=== PATIENT | female | born 1965 | race Caucasian/White ===

== ENCOUNTER 2022-03-11 14:21 | Emergency (ER) | payer BC ==
[~2022-03-11] VITALS: Ht 149.9 cm; Wt 70.3 kg
[2022-03-11 14:21] VITALS: BP_SYST 155
--- NOTE | 2022-03-11 14:25 | NUR ---
Patient triaged and placed in waiting room. VSS and patient appears in no acute distress at this time. Accompanied by SELF, awaiting available bed, and MD notified of need for MSE.
--- NOTE | 2022-03-11 14:27 | NUR ---
PT STATES THAT 6 DAYS AGO SHE ACCIDENTALLY SLEPT WITH HER DENTURES IN AND SINCE HAS HAD LEFT SIDED FACIAL SWELLING. PT STATES SHE HAD A FALL 1 YEAR AGO WITH INJURY TO LEFT SIDE OF FACE.
[2022-03-11 17:06] LABS: BASOPHILS % (AUTO) 0.4 % (0.0-2.0); EOSINOPHILS % (AUTO) 0.4 % (0.0-4.0); HEMATOCRIT 30.5 % (36-48); HEMOGLOBIN 10.5 g/dL (12.0-16.0); LYMPHOCYTES # (AUTO) 0.8 K/uL (1.0-5.5); LYMPHOCYTES % (AUTO) 9.6 % (20.5-51.5); MEAN CORPUSCULAR HEMOGLOBIN 26 pg (27-31); MEAN CORPUSCULAR HGB CONC 34 % (32-36); MEAN CORPUSCULAR VOLUME 76 fL (79.0-98.0); MONOCYTES # (AUTO) 0.7 K/uL (0.0-1.0); MONOCYTES % (AUTO) 8.3 % (1.7-9.3); NEUTROPHILS # (AUTO) 6.9 K/uL (1.8-7.7); NEUTROPHILS % (AUTO) 81.3 % (40.0-70.0); PLATELET COUNT (AUTO) 349 K/uL (130-430); RED BLOOD CELL COUNT(AUTO) 4.03 MIL/uL (4.2-6.2); RED CELL DISTRIBUTION WIDTH 14.9 % (9.0-15.0); WHITE BLOOD COUNT (AUTO) 8.5 K/uL (4.8-10.8)
[2022-03-11 17:30] LABS: PROTHROMBIN TIME 10.1 SECS (9.5-12.5)
[2022-03-11 17:36] LABS: ALBUMIN 1.7 g/dL (3.4-4.8); C-REACTIVE PROTEIN QUANT 13.9 mg/dL (0-0.5); CALCIUM 8.9 mg/dL (8.4-11.0); CREATININE 2.42 mg/dL (0.55-1.30); TOTAL BILIRUBIN 0.5 mg/dL (0.0-1.0)
[2022-03-11 18:04] LABS: ERYTHROCYTE SEDIMENTATION RATE 106 MM/HR (0-20)
--- NOTE | 2022-03-11 18:09 | NUR ---
BROUGHT BACK TO BED #5 AND REPORT GIVEN TO SANDHYA
[2022-03-11] MEDS ORDERED: KETOROLAC TROMETHAMINE 30 MG VIAL IM ONE (18:15)
[2022-03-11] MEDS ORDERED: DIPHENHYDRAMINE HCL 50 MG CAPSULE PO ONE (18:15)
[2022-03-11] MEDS ORDERED: AMOXICILLIN/POTASSIUM CLAV 875 MG TABLET PO ONE (18:15)
--- NOTE | 2022-03-11 18:25 | NUR ---
Pt is Patient is a 57-year-old female with a past medical history of diabetes and hypertension presenting to the ED with a 6-day history of left-sided facial and gum swelling, redness and pain. She states that approximately 1 week ago she slept on top of her dentures and woke up the following day with left-sided facial swelling. She reports that swelling and redness have not improved nor worsened over the course of the past week. Patient also endorses mild left-ear pain but otherwise denies throat swelling, difficulty swallowing, fevers, nausea, vomiting, shortness of breath, chest pain, or other symptoms at this time. To note, patient reports left facial bone fracture approximately 1 year ago and has been experiencing chronic pain since. Patient states that she was taking Naprosyn for pain but states that medication was causing increasing facial swelling so she reports switching to Excedrin for the past 2 days.
[2022-03-11] MEDS ORDERED: AUG875 PO (18:28)
[2022-03-11] MEDS ORDERED: OXYC-128 PO (18:28)
[2022-03-11] MEDS ORDERED: FLUT16SP16 NS (18:28)
[2022-03-11] MEDS ORDERED: [UNRECOGNIZED DRUG - CODE] PO (18:28)
[2022-03-11] MEDS ORDERED: OXYCODONE/ACETAMINOPHEN 5-325 TABLET PO ONE (18:45)
--- NOTE | 2022-03-11 19:00 | NUR ---
Patient given written and verbal discharge instructions and verbalizes understanding. ER MD discussed with patient the results and treatment provided. Patient in stable condition. ID arm band removed. Prescription given and discussed. Patient educated on pain management and to follow up with PMD. Opportunity for questions provided and answered. Medication side effect fact sheet provided.
[2022-03-11 22:24] VITALS: BP_SYST 155
== END 2022-03-11 19:00 | disposition home or self-care (01) ==
LOC: SED 14:21
DX: J01.90 Acute sinusitis, unspecified (principal); R22.0 Localized swelling, mass and lump, head; M26.622 Arthralgia of left temporomandibular joint; K08.89 Other specified disorders of teeth and supporting structures; N17.9 Acute kidney failure, unspecified; D64.9 Anemia, unspecified; E11.9 Type 2 diabetes mellitus without complications; I10 Essential (primary) hypertension; Z79.899 Other long term (current) drug therapy
CPT/HCPCS: 99284; 70450; 80053; 85025; 85610; 85651; 85730; 86140; 87040; 36415; 70486; 76376; 83605; Q0163; J1885

== ENCOUNTER 2022-03-14 07:16 | Inpatient (IN) | payer BC ==
[~2022-03-14] VITALS: Ht 149.9 cm; Wt 74.8 kg
[~2022-03-14 07:16] MED LIST: AUG875 PO; FLUT16SP16 NS; OXYC-128 PO; [UNRECOGNIZED DRUG - CODE] PO
[2022-03-14 07:49] VITALS: BP_SYST 235
[2022-03-14] MEDS ORDERED: LABETALOL HCL 20 MG/4 ML CARTRIDGE IVP ONE (08:00)
[2022-03-14] MEDS ORDERED: NACL 0.9% 1,000 ML IV ONE (08:00)
[2022-03-14] MEDS ORDERED: AMPICILLIN SODIUM/SULBACTAM NA 3 GM in NS 100 ML IV ONE (08:15)
[2022-03-14] MEDS ORDERED: AMPICILLIN SODIUM/SULBACTAM NA 3 GM VIAL ONE (08:26)
[2022-03-14] MEDS ORDERED: POLYMYXIN B/TRIMETHOPRIM EYE DROPS 10 mL OP ONE (08:45)
[2022-03-14 09:03] LABS: BASOPHILS % (AUTO) 0.3 % (0.0-2.0); EOSINOPHILS % (AUTO) 0.2 % (0.0-4.0); HEMATOCRIT 30.7 % (36-48); HEMOGLOBIN 10.5 g/dL (12.0-16.0); LYMPHOCYTES # (AUTO) 0.8 K/uL (1.0-5.5); LYMPHOCYTES % (AUTO) 8.8 % (20.5-51.5); MEAN CORPUSCULAR HEMOGLOBIN 26 pg (27-31); MEAN CORPUSCULAR HGB CONC 34 % (32-36); MEAN CORPUSCULAR VOLUME 76 fL (79.0-98.0); MONOCYTES # (AUTO) 0.6 K/uL (0.0-1.0); MONOCYTES % (AUTO) 6.5 % (1.7-9.3); NEUTROPHILS # (AUTO) 7.7 K/uL (1.8-7.7); NEUTROPHILS % (AUTO) 84.2 % (40.0-70.0); PLATELET COUNT (AUTO) 275 K/uL (130-430); RED BLOOD CELL COUNT(AUTO) 4.02 MIL/uL (4.2-6.2); RED CELL DISTRIBUTION WIDTH 14.2 % (9.0-15.0); WHITE BLOOD COUNT (AUTO) 9.1 K/uL (4.8-10.8)
[2022-03-14 09:09] LABS: CALCIUM 8.3 mg/dL (8.4-11.0); CREATININE 2.32 mg/dL (0.55-1.30)
[2022-03-14 09:13] LABS: ALBUMIN 1.6 g/dL (3.4-4.8); C-REACTIVE PROTEIN QUANT 11.2 mg/dL (0-0.5); TOTAL BILIRUBIN 0.7 mg/dL (0.0-1.0)
[2022-03-14] MEDS ORDERED: OXYMETAZOLINE HCL 0.05% NASAL SPRAY NS ONE (09:45)
[2022-03-14] MEDS ORDERED: INSULIN REGULAR, HUMAN 100 UNITS/ML, 3 ML VIAL SUBCUT ONE (09:45)
[2022-03-14 09:55] LABS: ERYTHROCYTE SEDIMENTATION RATE 113 MM/HR (0-20)
[2022-03-14] MEDS ORDERED: INSULIN REGULAR, HUMAN 10 UNITS/0.1 ML, 3 ML VIAL ONE (10:00)
[2022-03-14] MEDS ORDERED: hydrALAZINE HCL 20 MG/ML VIAL IVP ONE (13:00)
[2022-03-14] MEDS ORDERED: METOPROLOL SUCCINATE 50 MG TAB.SR.24H (TOPROL XL) PO ONE (13:30)
[2022-03-14] MEDS ORDERED: NAPROXEN 250 MG TABLET PO ONE (13:45)
[2022-03-14] MEDS: ESMOLOL HCL/SOD CL 250 ML IV PRN ×3 (13:54→19:08)
[2022-03-14] MEDS ORDERED: hydrALAZINE HCL 25 MG TABLET PO SCH ×2 (14:00→20:00)
[2022-03-14 14:43] LABS: FREE T4 (FREE THYROXINE) 0.5 ng/dL (0.6-1.6); THYROID STIMULATING HORMONE 0.93 uIu/mL (0.34-4.82)
[2022-03-14 14:43] LABS: BILIRUBIN,URINE NEGATIVE (NEGATIVE); BLOOD, URINE 1+ (NEGATIVE); CLARITY/URINE CLEAR (CLEAR); COLOR,URINE YELLOW (YELLOW); GLUCOSE,URINE 3+ (NEGATIVE); KETONES,URINE NEGATIVE (NEGATIVE); LEUKOCYTE ESTERASE ,URINE NEGATIVE (NEGATIVE); NITRITE, URINE NEGATIVE (NEGATIVE); PH,URINE 6.5 (5.0-8.0); PROTEIN URINE 3+ (NEGATIVE); UROBILINOGEN,URINE 0.2 (0.2-1.0)
[2022-03-14] MEDS ORDERED: LORazepam 2 MG/ML VIAL IVP PRN (14:45)
[2022-03-14] MEDS ORDERED: ONDANSETRON HCL 4 MG/2 ML VIAL IVP PRN (14:45)
[2022-03-14] MEDS ORDERED: ACETAMINOPHEN 325 MG TABLET PO PRN ×2 (14:45→15:15)
[2022-03-14] MEDS ORDERED: INSULIN REGULAR, HUMAN 100 UNITS/ML, 3 ML VIAL (humuLIN R) SUBCUT PRN (14:45)
[2022-03-14] MEDS ORDERED: NALOXONE HCL 0.4 MG/ML AMP (NARCAN) IVP PRN (14:45)
[2022-03-14] MEDS ORDERED: OXYCODONE/ACETAMINOPHEN 5-325 TABLET PO PRN (14:45)
[2022-03-14] MEDS ORDERED: HYDROcodone/ACETAMIN 5-325 MG TAB (NORCO/ VICODIN) PO PRN (14:45)
[2022-03-14 14:59] LABS: BACTERIA,URINE FEW /HPF (None Seen); WBC,URINE 0-3 /HPF (0-3)
[2022-03-14] MEDS ORDERED: DIPHENHYDRAMINE HCL 25 MG CAPSULE PO PRN (16:00)
[2022-03-14] MEDS ORDERED: BENA10TA73 PO (18:15)
[2022-03-14] MEDS ORDERED: QUET400T PO (18:15)
[2022-03-14 19:54] VITALS: BP_SYST 154
[2022-03-14] MEDS ORDERED: AMPICILLIN SODIUM/SULBACTAM NA 3 GM in NS 100 ML IV SCH (21:00)
[2022-03-14] MEDS ORDERED: NAPROXEN 250 MG TABLET PO SCH (21:00)
[2022-03-14] MEDS ORDERED: NORMAL SALINE 5 ML DISP.SYRIN IVF SCH ×2 (22:00)
[2022-03-15] MEDS ORDERED: FLUTICASONE PROPIONATE 50 mCg/SPRAY 16 GM NS PRN (09:00)
[2022-03-15] MEDS ORDERED: METOPROLOL SUCCINATE 50 MG TAB.SR.24H (TOPROL XL) PO SCH (09:00)
== END 2022-03-17 20:29 | disposition left against medical advice (07) | DRG 199 ==
LOC: SED 07:16 → STU 09:52
PROVIDERS: ADMIT Preventive Medicine Preventive Medicine/Occupational Environmental Medicine; ATTEND Preventive Medicine Preventive Medicine/Occupational Environmental Medicine
DX: I16.0 Hypertensive urgency (principal); N17.0 Acute kidney failure with tubular necrosis; E43 Unspecified severe protein-calorie malnutrition; E88.09 Other disorders of plasma-protein metabolism, not elsewhere classified; E87.1 Hypo-osmolality and hyponatremia; E11.21 Type 2 diabetes mellitus with diabetic nephropathy; D64.9 Anemia, unspecified; B19.20 Unspecified viral hepatitis C without hepatic coma; E11.22 Type 2 diabetes mellitus with diabetic chronic kidney disease; J01.80 Other acute sinusitis; E11.65 Type 2 diabetes mellitus with hyperglycemia; J45.909 Unspecified asthma, uncomplicated; Z53.29 Procedure and treatment not carried out because of patient's decision for other reasons; E83.52 Hypercalcemia; I12.9 Hypertensive chronic kidney disease with stage 1 through stage 4 chronic kidney disease, or unspecified chronic kidney disease; N18.9 Chronic kidney disease, unspecified; Z20.822 Contact with and (suspected) exposure to COVID-19
CPT/HCPCS: 36415; 70486-TC; 71045; 76376; 80053; 81000; 82533; 83605; 84439; 84443; 84484; 85025; 85651-TC; 86140; 87040; 87070-TC; 87075-TC; 87081; 96365; 96372; 96375; 99285; G0378; J0295; J0360; J1815